=== PATIENT | female | born 1970 | race Caucasian/White ===

== ENCOUNTER 2016-09-11 19:59 | Emergency (ER) | payer OTHER ==
[~2016-09-11] VITALS: Ht 170.2 cm; Wt 63.5 kg
[2016-09-11 20:16] VITALS: BP 122/76
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
[2016-09-11] MEDS ORDERED: CYCLOBENZAPRINE5 M2 PO (20:57)
[2016-09-11] MEDS ORDERED: MEDROL4 M2 PO (20:57)
== END 2016-09-11 21:04 ==
LOC: ERH 19:59
DX: M54.12 Radiculopathy, cervical region (principal)